=== PATIENT | female | born 1940 | race Caucasian/White ===

== ENCOUNTER 2018-02-18 10:39 | Emergency (ER) | payer MEDICARE, OTHER ==
[~2018-02-18] VITALS: Ht 154.9 cm; Wt 51.8 kg
[~2018-02-18 10:39] MED LIST: ARTHROTEC 775 MG/TAB PO; CALCIUM CITRAT200 M1 PO; CRESTOR40 MG PO; FOLIC ACID 40400 MCG PO; HCTZ 25MG TAB25 MG PO; IRON325 M1 PO; LIPITOR 80MG80 MG PO; LOTENSIN20 MG PO; METFORMIN500 MG PO; OMEGA-3 1000 MG1 CAP PO; PRILOSEC 20MG20 MG PO; TYLENOL 500MG500 MG PO; VITAMIN C500 MG PO; VOLTAREN GEL 1%1 TU TP
[2018-02-18 10:41] VITALS: TEMP 97.9
[2018-02-18 11:07] LABS: BASO % 0.3 % (0.0-2.0); EOS # 0.1 (0.0-0.7); EOS % 0.9 % (0-4.0); GRAN # 8.9 (1.4-6.5); GRAN % 85.9 % (42.2-75.2); LYMPH # 0.8 (1.2-3.4); MEAN CELL VOLUME 81 fl (80.0-100.0); MEAN CORPUSCULAR HGB CONC 32 g/dl (33.0-37.0); MEAN PLATELET VOLUME 10.8 fl (7.4-10.4); MONO # 0.5 (0.1-0.6); MONO % 4.6 % (1.7-9.3); PLATELET COUNT 259 K/mm3 (130-400); RED BLOOD COUNT 4.04 M/mm3 (4.10-5.30); REDCELL DISTRIBUTION WIDTH-CV 15.4 % (11.5-14.5)
[2018-02-18 11:11] LABS: HEMATOCRIT 32.7 % (37.0-47.0); HEMOGLOBIN 10.5 g/dl (12.5-16.0); MEAN CORPUSCULAR HEMOGLOBIN 26 pg (27.0-31.0)
[2018-02-18 11:13] LABS: INR 1.1 (0.8-3.0); PROTHROMBIN TIME 12.2 SECONDS (9.7-12.8)
[2018-02-18 11:20] LABS: ALANINE AMINOTRANSFERASE 29 U/L (9-52); ALBUMIN 4.2 gm/dL (3.5-5.0); ALKALINE PHOSPHATASE 80 U/L (50-136); ANION GAP 14 mmol/L (7-16); AST,SGOT 21 U/L (15-37); BILIRUBIN,TOTAL 0.3 mg/dL (0.0-1.0); BLOOD UREA NITROGEN 34 mg/dL (7-17); CALCIUM 9.5 mg/dL (8.4-10.2); CARBON DIOXIDE 22 mmol/L (22-30); CHLORIDE 105 mmol/L (98-107); CREATININE, serum 1.87 mg/dL (0.52-1.25); GLUCOSE 135 mg/dL (74-106); POTASSIUM 4.4 mmol/L (3.4-5.0); SODIUM 141 mmol/L (137-145); TOTAL PROTEIN 7.9 gm/dL (6.4-8.2)
[2018-02-18 11:30] LABS: TROPONIN-I < 0.012 ng/mL (0.000-0.034)
[2018-02-18] MEDS ORDERED: AMOXICILLIN 8751 TAB PO (11:44)
[2018-02-18] MEDS ORDERED: OYSTER SHELL C500 MG PO (11:56)
[2018-02-18] MEDS ORDERED: PROTONIX 40MG T40 MG PO (11:58)
[2018-02-18] MEDS ORDERED: GLUCOPHAGE500 MG/TAB PO (11:59)
[2018-02-18] MEDS ORDERED: CRESTOR40 MG PO (11:59)
[2018-02-18] MEDS ORDERED: FLONASEALLERGY NS (12:00)
[2018-02-18 12:18] LABS: AMYLASE 113 U/L (30-110); LIPASE 162 U/L (23-300)
[2018-02-18 14:54] VITALS: BP 151/87; PULSE 96
== END 2018-02-18 14:52 | disposition home or self-care (01) ==
LOC: COL.ER 10:39
PROVIDERS: Emergency Medicine
DX: K21.9 Gastro-esophageal reflux disease without esophagitis (principal); R13.10 Dysphagia, unspecified; E11.43 Type 2 diabetes mellitus with diabetic autonomic (poly)neuropathy; K31.84 Gastroparesis; E11.22 Type 2 diabetes mellitus with diabetic chronic kidney disease; I12.9 Hypertensive chronic kidney disease with stage 1 through stage 4 chronic kidney disease, or unspecified chronic kidney disease; N18.9 Chronic kidney disease, unspecified; Z87.11 Personal history of peptic ulcer disease; Z85.3 Personal history of malignant neoplasm of breast; Z96.641 Presence of right artificial hip joint; Z90.12 Acquired absence of left breast and nipple; Z79.51 Long term (current) use of inhaled steroids; Z79.84 Long term (current) use of oral hypoglycemic drugs
CPT/HCPCS: C9113; J2270; J2765; J3010

== ENCOUNTER → 2018-04-19 | Outpatient (CLI) | payer MEDICARE, OTHER ==
[~2018-04-19] MED LIST changes: +AMOXICILLIN 8751 TAB PO; +FLONASEALLERGY NS; +GLUCOPHAGE500 MG/TAB PO; +OYSTER SHELL C500 MG PO; +PROTONIX 40MG T40 MG PO
== END ==
LOC: COL.RAD 09:12
DX: K44.9 Diaphragmatic hernia without obstruction or gangrene (principal); K22.8 Other specified diseases of esophagus; K21.9 Gastro-esophageal reflux disease without esophagitis; R47.02 Dysphasia

== ENCOUNTER 2018-06-19 09:21 | Day surgery (SDC) | payer MEDICARE, OTHER ==
[2018-06-19] VITALS (7 sets, daily range): BP systolic 110–134; BP diastolic 50–68; PULSE 51–57; TEMP 97.8
[~2018-06-19] VITALS: Ht 154.9 cm; Wt 52.5 kg
[2018-06-19] MEDS ORDERED: TIAZAC180 MG PO (10:26)
[2018-06-19] MEDS ORDERED: FISH OIL 1000MG1 CAP PO (10:27)
[2018-06-19] MEDS ORDERED: NITROSTAT0.3 MG SL (10:30)
== END 2018-06-19 13:16 | disposition home or self-care (01) ==
LOC: SDCO 09:21
DX: K29.30 Chronic superficial gastritis without bleeding (principal); K44.9 Diaphragmatic hernia without obstruction or gangrene; K21.9 Gastro-esophageal reflux disease without esophagitis; M19.90 Unspecified osteoarthritis, unspecified site; I10 Essential (primary) hypertension; E78.5 Hyperlipidemia, unspecified; E11.9 Type 2 diabetes mellitus without complications; Z96.659 Presence of unspecified artificial knee joint; Z79.84 Long term (current) use of oral hypoglycemic drugs; Z88.2 Allergy status to sulfonamides; Z85.3 Personal history of malignant neoplasm of breast
CPT/HCPCS: J2250; J3010; J7030

== ENCOUNTER → 2018-08-22 | Outpatient (CLI) | payer MEDICARE, OTHER ==
[~2018-08-22] MED LIST changes: +FISH OIL 1000MG1 CAP PO; +NITROSTAT0.3 MG SL; +TIAZAC180 MG PO
== END ==
LOC: MC.RAD 10:31
DX: Z12.31 Encounter for screening mammogram for malignant neoplasm of breast (principal); Z85.3 Personal history of malignant neoplasm of breast; Z90.12 Acquired absence of left breast and nipple; Z98.82 Breast implant status

== ENCOUNTER → 2020-07-02 | Outpatient (CLI) | payer MEDICARE, OTHER | LOC: COL.RAD 12:19 | DX: M25.511 Pain in right shoulder (principal) | CPT/HCPCS: J3301; Q9967 ==

== ENCOUNTER → 2020-08-03 | Outpatient (CLI) | payer MEDICARE, OTHER | LOC: MC.RAD 09:45 | DX: Z12.31 Encounter for screening mammogram for malignant neoplasm of breast (principal); Z90.12 Acquired absence of left breast and nipple; Z98.890 Other specified postprocedural states; Z98.82 Breast implant status; Z85.3 Personal history of malignant neoplasm of breast ==

== ENCOUNTER 2020-11-24 07:42 | Day surgery (SDC) | payer MEDICARE, OTHER ==
[~2020-11-24] VITALS: Ht 149.9 cm; Wt 49.3 kg
[~2020-11-24 07:42] MED LIST changes: +OSCAL 500 TAB500 MG PO; -OYSTER SHELL C500 MG PO
[2020-11-24 08:05] VITALS: BP 142/69; PULSE 60; TEMP 98
[2020-11-24] MEDS ORDERED: MASON NATURAL2000 IU PO (08:14)
[2020-11-24 09:37] VITALS: BP 117/57; PULSE 72; TEMP 97.5
--- NOTE | 2020-11-24 09:37 | NUR ---
The patient arrived back 5 from the Endoscopy suite at this time. The patient appears alert and oriented and ambulated from the cart the recliner in her room with the stand by assistance of two nurses and appeared to tolerate the activity well. Post procedure vital signs were started at this time. Will continue to monitor the patient.
--- NOTE | 2020-11-24 09:45 | NUR ---
Dr. Schafer is at the patient's bedside discussing the findings from the procedure. Will continue to monitor the patient.
--- NOTE | 2020-11-24 09:52 | NUR ---
The patient appears to be tolerating the juice well and denies wanting anything further to eat or drink at this time. Vital signs appear stable. Call light is within reach. Will continue to monitor the patient.
[2020-11-24 09:54] VITALS: BP 117/64; PULSE 63
[2020-11-24 10:10] VITALS: BP 124/58; PULSE 63
--- NOTE | 2020-11-24 10:10 | NUR ---
Discharge instructions were reviewed with the patient at this time. She verbalized understanding and has no questions for the nurse at this time. The patient's IV to her right forearm was removed and a pressure dressing was applied to the site. 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 The patient is to let the staff know when she is ready to be escorted out.
--- NOTE | 2020-11-24 10:20 | NUR ---
The patient was escorted out via wheelchair to a private vehicle by LELAND Mack. The patient's belongings and discharge paperwork were sent with her. The patient's , Rani, is present to drive her home.
== END 2020-11-24 10:20 | disposition home or self-care (01) ==
LOC: SDCO 07:42
DX: K57.30 Diverticulosis of large intestine without perforation or abscess without bleeding (principal); K64.0 First degree hemorrhoids; Z85.3 Personal history of malignant neoplasm of breast; E11.9 Type 2 diabetes mellitus without complications; K21.9 Gastro-esophageal reflux disease without esophagitis; M19.90 Unspecified osteoarthritis, unspecified site; E78.00 Pure hypercholesterolemia, unspecified; I10 Essential (primary) hypertension; Z79.84 Long term (current) use of oral hypoglycemic drugs; Z88.2 Allergy status to sulfonamides; Z88.1 Allergy status to other antibiotic agents; Z90.12 Acquired absence of left breast and nipple
CPT/HCPCS: J2704; J7030

== ENCOUNTER → 2021-01-19 | Outpatient (CLI) | payer MEDICARE, OTHER ==
[~2021-01-19] MED LIST changes: +MASON NATURAL2000 IU PO; +ONE-A-DAY ESSE1 EACH PO
== END ==
LOC: COL.RAD 07:46
DX: M47.816 Spondylosis without myelopathy or radiculopathy, lumbar region (principal); M41.86 Other forms of scoliosis, lumbar region; M48.061 Spinal stenosis, lumbar region without neurogenic claudication; M47.817 Spondylosis without myelopathy or radiculopathy, lumbosacral region

== ENCOUNTER → 2021-01-29 | Outpatient (CLI) | payer MEDICARE, OTHER | LOC: COL.RAD 10:09 | DX: M25.511 Pain in right shoulder (principal); G89.29 Other chronic pain; M41.26 Other idiopathic scoliosis, lumbar region; M54.16 Radiculopathy, lumbar region | CPT/HCPCS: J3301; Q9967 ==

== ENCOUNTER → 2021-02-05 | Outpatient (CLI) | payer MEDICARE, OTHER ==
[~2021-02-05] VITALS: Ht 149.9 cm; Wt 48.2 kg
[2021-02-05 07:07] VITALS: BP 154/77; PULSE 51
[2021-02-05 08:30] VITALS: BP 159/83; PULSE 56
== END ==
LOC: COL.RAD 06:44
DX: M54.16 Radiculopathy, lumbar region (principal); M41.26 Other idiopathic scoliosis, lumbar region; M25.511 Pain in right shoulder; G89.29 Other chronic pain
CPT/HCPCS: J3301

== ENCOUNTER → 2021-04-30 | Outpatient (CLI) | payer MEDICARE, OTHER | LOC: COL.RAD 07:23 | DX: M19.011 Primary osteoarthritis, right shoulder (principal) | CPT/HCPCS: J3301; Q9967 ==

== ENCOUNTER → 2021-08-09 | Outpatient (CLI) | payer MEDICARE, OTHER | LOC: COL.RAD 12:16 | DX: M19.011 Primary osteoarthritis, right shoulder (principal); M65.811 Other synovitis and tenosynovitis, right shoulder ==

== ENCOUNTER → 2021-09-03 | Outpatient (CLI) | payer MEDICARE, OTHER | LOC: MC.RAD 13:06 | DX: Z12.31 Encounter for screening mammogram for malignant neoplasm of breast (principal); Z85.3 Personal history of malignant neoplasm of breast ==

== ENCOUNTER 2021-10-23 07:48 | Emergency (ER) | payer MEDICARE, OTHER ==
[~2021-10-23] VITALS: Ht 149.9 cm; Wt 46.4 kg
[2021-10-23 07:56] VITALS: BP 176/87; TEMP 98.4
[2021-10-23 09:37] VITALS: PULSE 61
== END 2021-10-23 09:38 | disposition home or self-care (01) ==
LOC: COL.ER 07:48
DX: S16.1XXA Strain of muscle, fascia and tendon at neck level, initial encounter (principal); I10 Essential (primary) hypertension; E78.5 Hyperlipidemia, unspecified; E11.9 Type 2 diabetes mellitus without complications; Z79.899 Other long term (current) drug therapy; W01.0XXA Fall on same level from slipping, tripping and stumbling without subsequent striking against object, initial encounter

== ENCOUNTER → 2022-09-15 | Outpatient (CLI) | payer MEDICARE, OTHER | LOC: MC.RAD 15:17 | DX: Z12.31 Encounter for screening mammogram for malignant neoplasm of breast (principal) ==

== ENCOUNTER → 2023-11-21 | Outpatient (CLI) | payer MEDICARE, OTHER ==
[~2023-11-21] MED LIST changes: +CENTRUM SILVER1 TA2 PO; +ZYLOPRIM 100MG100 MG PO
== END ==
LOC: MC.RAD 11:00
DX: Z12.31 Encounter for screening mammogram for malignant neoplasm of breast (principal)